=== PATIENT | male | born 1970 | race Caucasian/White ===

== ENCOUNTER 2018-05-16 11:30 | Inpatient (IN) | payer BC ==
[2018-05-16] MEDS ORDERED: Nicotine Inhaler* 10 MG AMP INH PRN (11:48)
--- NOTE | 2018-05-16 11:51 | ED ---
Psychiatric Complaint - HPI Summary HPI Summary: Patient is a 47-year-old male with history of bipolar disorder taking sertraline as needed for depression and anxiety. He states he took one yesterday, but this does not improve the symptoms. For the past several days he has been having racing thoughts. Denies any suicidal or homicidal ideation. Denies any self-harm. He states he is under a lot of stress at work with attempting enclosing a deal with the [employer]. He is endorsing insomnia. He denies any health problems to his knowledge, including cardiac disease. is at bedside. He currently does not have a therapist. - History Of Current Complaint Chief Complaint: EDMentalHealth Time Seen by Provider: 05/16/18 11:44 Hx Obtained From: Patient, Family/Optical Effects Line Up Person Onset/Duration: Sudden Onset Timing: Constant Severity Initially: Moderate Severity Currently: Moderate Character: Manic Aggravating Factor(s): Recent Stress Alleviating Factor(s): Nothing Associated Signs And Symptoms: Positive: Negative - Risk Factor(s) Completed Suicide Risk Factors: Male, Age Greater Than 60, White [place] - Allergies/Home Medications Allergies/Adverse Reactions: Allergies Allergy/AdvReac Type Severity Reaction Status Date / Time No Known Allergies Allergy Verified 05/16/18 11:36 Home Medications: Home Medications NK [No Home Medications Reported] 05/16/18 [History Confirmed 05/16/18] PMH/Surg Hx/FS Hx/Imm Hx Previously Healthy: Yes - Immunization History Hx Pertussis Vaccination: No Immunizations Up to Date: Yes Infectious Disease History: No Infectious Disease History: Denies: Traveled Outside the [place] in Last 30 Days - Social History Occupation: Employed Full-time Lives: With Family Alcohol Use: None Hx Substance Use: No Substance Use Type: Reports: None Hx Tobacco Use: No Smoking Status (MU): Never Smoked Tobacco Review of Systems Negative: Fever, Chills, Fatigue, Skin Diaphoresis Negative: Palpitations, Chest Pain Negative: Shortness Of Breath, Cough Genitourinary: Negative Positive: no symptoms reported, see HPI Negative: Arthralgia, Myalgia Negative: Bruising Negative: Headache, Weakness Positive: Anxious, Depressed All Other Systems Reviewed And Are Negative: Yes Physical Exam Triage Information Reviewed: Yes Vital Signs On Initial Exam: Initial Vitals Temp Pulse Resp BP Pulse Ox 97.6 F 109 22 152/116 97 05/16/18 11:32 05/16/18 11:32 05/16/18 11:32 05/16/18 11:32 05/16/18 11:32 Vital Signs Reviewed: Yes Appearance: Positive: Well-Appearing Skin: Positive: Warm, Skin Color Reflects Adequate Perfusion Head/Face: Positive: Normal Head/Face Inspection Eyes: Positive: EOMI, RAJESH, Conjunctiva Clear Neck: Positive: Supple, No Lymphadenopathy Respiratory/Lung Sounds: Positive: Clear to Auscultation, Breath Sounds Present Cardiovascular: Positive: RRR, Pulses are Symmetrical in both Upper and Lower Extremities Musculoskeletal: Positive: Normal, Strength/ROM Intact Neurological: Positive: Speech Normal Psychiatric: Positive: Normal, Affect/Mood Appropriate Diagnostics - Vital Signs Vital Signs Temp Pulse Resp BP Pulse Ox 05/16/18 11:32 97.6 F 109 22 152/116 97 - Laboratory Result Diagrams: 05/16/18 12:03 05/16/18 12:03 Lab Statement: Any lab studies that have been ordered have been reviewed, and results considered in the medical decision making process. Course/Dx - Course Course Of Treatment: During the patient's course treatment, the patient's evaluated for bipolar disorder which has been worse over the past 2 days. He endorses racing thoughts. Denies any suicidal homicidal ideation. He states he would like to talk to somebody and receive resources. He remains on sertraline as needed, but states this has not been improving his symptoms. Awaiting MHU - patient is signed out to Farhad Cruz PA-C at 5:30pm. - Differential Dx/Clinical Impression Differential Diagnosis/HQI/PQRI: Positive: Other - racing thoughts Provider Diagnosis: Stress Discharge - Sign-Out/Discharge Documenting (check all that apply): Sign-Out Patient Signing out patient TO: Farhad Cruz Patient Received Moderate/Deep Sedation with Procedure: No - Discharge Plan Condition: Good Referrals: Roque Fernandez MD [Primary Care Provider] - - Billing Disposition and Condition Condition: GOOD
[2018-05-16 12:11] LABS: ABS Basophils 0 10^3/ul (0-0.2); ABS Eosinophils 0 10^3/ul (0-0.6); ABS Lymphocytes 1.2 10^3/ul (1.0-4.8); ABS Monocytes 0.5 10^3/ul (0-0.8); ABS Neutrophils 5.3 10^3/ul (1.5-7.7); ABS Nucleated RBC 0 10^3/ul; Eosinophil % 0.2 %; Hematocrit 41 % (36-46); Lymphocyte % 16.8 %; Mean Corpuscular HGB Conc 34 g/dL (31-36); Mean Corpuscular Hemoglobin 29 pg (27-31); Mean Corpuscular Volume 86 fL (80-94); Mean Platelet Volume 7.3 fL (7.4-10.4); Nucleated Red Blood Cells % 0; Platelet Count 231 10^3/uL (150-450); Red Blood Count 4.77 10^6 /uL (4.18-5.48); Red Cell Distribution Width 14 % (10.5-15)
[2018-05-16 12:28] LABS: ALT 22 U/L (7-52); AST 26 U/L (13-39); Albumin 4.4 g/dL (3.2-5.2); Albumin/Globulin Ratio 1.5 (1-3); Alkaline Phosphatase 69 U/L (34-104); Anion Gap 8 mmol/L (2-11); BUN/Creatinine Ratio 11.5 (8-20); Blood Urea Nitrogen 10 mg/dL (6-24); CO2 Carbon Dioxide 23 mmol/L (22-32); Calcium 8.8 mg/dL (8.6-10.3); Chloride 103 mmol/L (101-111); EGFR African American 112.9 (>60); EGFR Non-African American 93.3 (>60); Glucose 136 mg/dL (70-100); Potassium 3.8 mmol/L (3.5-5.0); Sodium 134 mmol/L (135-145); Total Protein 7.4 g/dL (6.4-8.9)
[2018-05-16 12:29] LABS: Urine Appearance Clear; Urine Bilirubin Negative (Negative); Urine Blood Negative (Negative); Urine Color Straw; Urine Glucose Negative (Negative); Urine Ketones Negative (Negative); Urine Nitrite Negative (Negative); Urine Protein Negative (Negative); Urine Specific Gravity 1.009 (1.010-1.030); Urine Urobilinogen Negative (Negative)
[2018-05-16 12:55] LABS: Barbiturates Urine Screen None Detected (None Detect); Benzodiazepine Urine Screen None Detected (None Detect); Urine Cannabinoids Screen None Detected (None Detect)
[2018-05-16 13:38] LABS: Acetaminophen < 15 mcg/mL; Alcohol < 10 mg/dL (<10); Salicylate < 2.50 mg/dL (<30)
[2018-05-16 13:53] LABS: TSH (Thyroid Stimulating Horm) 0.85 mcIU/mL (0.34-5.60)
--- NOTE | 2018-05-16 20:01 | PN ---
Progress Note - Progress Note Date of Service: 05/16/18 Note: Patient signed out to me by Codie WASHBURN pending mental health evaluation and disposition. Per Dr. Jon, patient was admitted in good condition to [facility] [place] for [place].
[2018-05-16] MEDS ORDERED: Acetaminophen TAB* 325 MG PO PRN (22:27)
[2018-05-16] MEDS ORDERED: Nicotine GUM* 2 MG PO PRN (22:28)
[2018-05-16] MEDS ORDERED: Al Hydrox/Mg Hydrox/Simet LIQ* 30 ML UDC PO PRN (22:28)
[2018-05-16] MEDS ORDERED: LORazepam TAB(*) 1 MG PO PRN (22:29)
[2018-05-16] MEDS ORDERED: Mouth Piece, Nicotine* 1 EACH CARTRIDGE INH PRN (22:29)
[2018-05-17] MEDS ORDERED: OLANzapine TAB*ODT* 10 MG TAB ONE (09:28)
[2018-05-17] MEDS ORDERED: OLANzapine TAB*ODT* 10 MG TAB PO ONE (09:55)
[2018-05-17] MEDS: Multivitamins/Minerals TAB PO SCH (09:57)
[2018-05-17] MEDS ORDERED: Olanzapine INJ(NF) 10 MG VIAL IM ONE (10:00)
[2018-05-17] MEDS ORDERED: diPHENhydraMINE PO* 50 MG ONE (10:18)
[2018-05-17] MEDS ORDERED: Haloperidol TAB* 5 MG ONE (10:18)
[2018-05-17] MEDS ORDERED: LORazepam TAB(*) 1 MG ONE (10:18)
[2018-05-17] MEDS ORDERED: diPHENhydraMINE IV* 50 MG/ML 1 ml VIAL (BENADRYL) ONE (10:25)
[2018-05-17] MEDS ORDERED: Haloperidol INJ IV/IM* 5 MG/ML AMP ONE (10:25)
[2018-05-17] MEDS ORDERED: LORazepam INJ* 2 MG/ML 1 ML VIAL ONE (10:27)
[2018-05-17] MEDS ORDERED: LORazepam INJ* 2 MG/ML 1 ML VIAL IM ONE (10:35)
[2018-05-17] MEDS ORDERED: LORazepam TAB(*) 1 MG PO ONE (10:35)
[2018-05-17] MEDS ORDERED: diPHENhydraMINE PO* 50 MG PO ONE (10:35)
[2018-05-17] MEDS ORDERED: Haloperidol TAB* 5 MG PO ONE (10:35)
[2018-05-17] MEDS ORDERED: diPHENhydraMINE IV* 50 MG/ML 1 ml VIAL (BENADRYL) IM ONE (10:35)
[2018-05-17] MEDS ORDERED: Haloperidol INJ IV/IM* 5 MG/ML AMP IM ONE (10:35)
--- NOTE | 2018-05-17 20:53 | HP ---
H&P (Free Text) History and Physical: Justification for admission - Mr Simmons has been manic and psychotic, with thoughts that he and his in a motor vehicle accident, for example. He stated to ED staff that he was suicidal. He requires hospital level of care for safety, assessment and treatment. ID Mr Simomns is 47 year-old man. 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 CC Requires care for psychotic loyda HPI Mr Simmons is difficult to interview at this time, given his psychosis and seeking immediate discharge. He has reported poor sleep and stress at work. He has reported multiple morbid and odd false beliefs, including that his parents are , that he slashed his wrists, and that he and his in a car accident. He has had several episodes of psychotic level loyda at about 7 year intervals per his Angela. She reports that past episodes have quickly resolved after he received medications and slept well for a few days. On the unit today, his behavior escalated to the point of threatening to kill a nurse, which required security be called and Haldol 5 mg, Ativan 2 mg, Benadryl 50 mg IM medication given. Substance abuse denied any history of substance abuse at this last admission here in 2010 and in ED evaluation. Denied ever smoking tobacco. Past Psychiatric History Previously admitted to this unit in 2006 and 2010. Has lapsed from care against loyda, which had included taking Seroquel in the past. Suicidal history none reported Violence history Angela denies any history of violence. Legal history none reported Family History reported on 2011 admission anxiety issues in mother and grandmother, with some related issues in his brother. Medical History denied any health problems in ED eval REVIEW OF SYSTEMS and PHYSICAL EXAMINATION in ED negative/normal except for psychiatric issues. Vital Signs - On Arrival Temp Pulse Resp BP Pulse Ox 97.6 F 109 22 152/116 97 05/16/18 11:32 05/16/18 11:32 05/16/18 11:32 05/16/18 11:32 05/16/18 11:32 Vital Signs - Most Recent Temp Pulse Resp BP Pulse Ox 98.1 F 104 16 115/91 98 05/16/18 22:18 05/16/18 22:18 05/17/18 12:42 05/16/18 22:18 05/16/18 22:18 Labs Laboratory Tests 05/16/18 05/16/18 05/16/18 11:47 11:47 12:03 WBC 7.0 RBC 4.77 Hgb 14.0 Hct 41 MCV 86 MCH 29 MCHC 34 RDW 14 Plt Count 231 MPV 7.3 L Neut % (Auto) 75.4 Lymph % (Auto) 16.8 Rolette % (Auto) 7.0 Eos % (Auto) 0.2 Baso % (Auto) 0.6 Absolute Neuts (auto) 5.3 Absolute Lymphs (auto) 1.2 Absolute Monos (auto) 0.5 Absolute Eos (auto) 0 Absolute Basos (auto) 0 Absolute Nucleated RBC 0 Nucleated RBC % 0 Sodium Potassium Chloride Carbon Dioxide Anion Gap BUN Creatinine Est GFR ( Amer) Est GFR (Non-Af Amer) BUN/Creatinine Ratio Glucose Calcium Total Bilirubin AST ALT Alkaline Phosphatase Total Protein Albumin Globulin Albumin/Globulin Ratio TSH Urine Color Straw Urine Appearance Clear Urine pH 6.0 Ur Specific [place] 1.009 L Urine Protein Negative Urine Ketones Negative Urine Blood Negative Urine Nitrate Negative Urine Bilirubin Negative Urine Urobilinogen Negative Ur Leukocyte Esterase Negative Urine Glucose Negative Salicylates Urine Opiates Screen None detected Acetaminophen Ur Barbiturates Screen None detected Ur Phencyclidine Scrn None detected Ur Amphetamines Screen None detected U Benzodiazepines Scrn None detected Urine Cocaine Screen None detected U Cannabinoids Screen None detected Serum Alcohol 05/16/18 12:03 WBC RBC Hgb Hct MCV MCH MCHC RDW Plt Count MPV Neut % (Auto) Lymph % (Auto) Rolette % (Auto) Eos % (Auto) Baso % (Auto) Absolute Neuts (auto) Absolute Lymphs (auto) Absolute Monos (auto) Absolute Eos (auto) Absolute Basos (auto) Absolute Nucleated RBC Nucleated RBC % Sodium 134 L Potassium 3.8 Chloride 103 Carbon Dioxide 23 Anion Gap 8 BUN 10 Creatinine 0.87 Est GFR ( Amer) 112.9 Est GFR (Non-Af Amer) 93.3 BUN/Creatinine Ratio 11.5 Glucose 136 H Calcium 8.8 Total Bilirubin 0.80 AST 26 ALT 22 Alkaline Phosphatase 69 Total Protein 7.4 Albumin 4.4 Globulin 3.0 Albumin/Globulin Ratio 1.5 TSH 0.85 Urine Color Urine Appearance Urine pH Ur Specific [place] Urine Protein Urine Ketones Urine Blood Urine Nitrate Urine Bilirubin Urine Urobilinogen Ur Leukocyte Esterase Urine Glucose Salicylates < 2.50 Urine Opiates Screen Acetaminophen < 15 Ur Barbiturates Screen Ur Phencyclidine Scrn Ur Amphetamines Screen U Benzodiazepines Scrn Urine Cocaine Screen U Cannabinoids Screen Serum Alcohol < 10 Current meds Current Medications Acetaminophen (Tylenol Tab*) 650 mg PO Q4H PRN PRN Reason: PAIN; OR TEMP>101 Al Hydrox/Mg Hydrox/Simethicone (Maalox Plus*) 30 ml PO Q4H PRN PRN Reason: INDIGESTION Device (Nicotine Mouth Piece*) 1 each INH .USE W/ CARTRIDGE PRN PRN Reason: WITHDRAWAL - NICOTINE Lorazepam (Ativan Tab(*)) 1 mg PO BID PRN PRN Reason: ANXIETY Multivitamins/Minerals (Theragran/Minerals Tab*) 1 tab PO DAILY ROM Last Admin: 05/17/18 09:57 Dose: Not Given Nicotine (Nicotine Inhaler*) 10 mg INH Q2H PRN PRN Reason: CRAVING Nicotine Polacrilex (Nicotine Gum*) 2 mg PO Q2H PRN PRN Reason: CRAVING MSE Mr Simmons has been psychotic and agitated, and appeared to be making anglican gestures around the time of threatening to kill a nurse on the unit. His thought process is disorganized with delusional thought content. His insight, judgment and impulse control are all poor. Assessment Mr Simmons has reportedly had 4 or 5 episodes of psychotic loyda similar to his current presentation. He has been on Seroquel in the past. He reportedly has always cleared quickly once treatment leads to a few good days of sleep. Diagnoses Bipolar I, MRE manic with psychosis Plan Mr Simmons has been admitted to this [facility] for safety, assessment and treatment. Monitor with q15 minute checks. Coordinate care with help in gathering information from his Angela. Arrange for outpatient follow up care once stabilized and ready for discharge home. Restart on Seroquel, with Zyprexa and Ativan prn agitation. To consider lithium or Depakote once able to discuss risk/benefit with patient.
[2018-05-17] MEDS ORDERED: OLANzapine TAB*ODT* 5 MG PO PRN (20:54)
[2018-05-17] MEDS ORDERED: QUEtiapine TAB* 100 MG PO SCH (21:00)
[2018-05-18 07:57] VITALS: BP 121/88
[2018-05-18] MEDS: Multivitamins/Minerals TAB PO SCH (09:44)
--- NOTE | 2018-05-18 13:16 | PN ---
BSU: Group Therapy Note - Service Type Service Type: [id number] Group Psychotherapy - Cognitive Behavioral Group Therapy ( CBT):Patient was attentive and participatory in CBT programming this morning, and remained in good behavioral control. Patient expressed positive insights regarding relevant treatment interventions and goals.
== END 2018-05-18 12:30 | disposition home or self-care (01) | DRG 753 ==
LOC: ED 11:30 → BSU 21:10 → ED 22:18
PROVIDERS: ADMIT Psychiatry & Neurology Psychiatry; ATTEND Psychiatry & Neurology Psychiatry
DX: F31.2 Bipolar disorder, current episode manic severe with psychotic features (principal); Z81.8 Family history of other mental and behavioral disorders
CPT/HCPCS: 36415; 80053; 80307; 80320; 80329; 81003; 84443; 85025; 90853; 99222; 99238; 99285; A9270-GY; G0480; J1200; J1630; J2060

== ENCOUNTER 2018-06-03 21:48 | Emergency (ER) | payer BC ==
[2018-06-03 22:00] VITALS: BP 134/91
--- NOTE | 2018-06-04 00:20 | UC ---
General HPI - HPI Summary HPI Summary: PT ARRIVES WITH REQUESTING GLUCOSE CHECK AND HEART EVAL. HE HAS NO H/O DM OR CAD BUT IS CONCERNED DUE TO FAM HX. PT IS BIPOLAR, NOT ON MEDS AND ADMITS HIS THOUGHTS ARE RACING. RECENT ADMISSION FOR PSYCHOSIS AND SI 05/16/18-05/18/18. DID NOT F/U WITH MENTAL HEALTH. DENIES CP, SOB, NAUSEA, DIZZINESS, SWEATS. - History of Current Complaint Chief Complaint: UCGeneralIllness Stated Complaint: POSSIBLE HIGH BLOOD SUGAR Time Seen by Provider: 06/03/18 22:02 Hx Obtained From: Patient Pain Intensity: 0 - Allergy/Home Medications Allergies/Adverse Reactions: Allergies Allergy/AdvReac Type Severity Reaction Status Date / Time No Known Allergies Allergy Verified 06/03/18 22:00 PMH/Surg Hx/FS Hx/Imm Hx Psychological History: Bipolar Disorder - Surgical History Surgical History: Yes Surgery Procedure, Year, and Place: hernia repair, Cholecystectomy, labrum repair - Family History Known Family History: Positive: Cardiac Disease, Diabetes - Social History Alcohol Use: Weekly Alcohol Amount: 2X Substance Use Type: None Smoking Status (MU): Never Smoked Tobacco - Immunization History Most Recent Influenza Vaccination: January 2018 Most Recent Pneumonia Vaccination: n/a Review of Systems All Other Systems Reviewed And Are Negative: Yes Constitutional: Positive: Negative Respiratory: Positive: Negative Cardiovascular: Positive: Negative Gastrointestinal: Positive: Negative Psychological: Positive: Anxious Physical Exam Triage Information Reviewed: Yes Appearance: Well-Appearing - PT WELL GROOMED, GOOD EYE CONTACT, APPROPRIATELY INTERACTIVE, No Pain Distress, Well-Nourished Vital Signs: Initial Vital Signs Temp 98.7 F 06/03/18 21:53 Pulse 105 06/03/18 21:53 Resp 16 06/03/18 21:53 BP 134/91 06/03/18 21:53 Pulse Ox 95 06/03/18 21:53 Vital Signs Reviewed: Yes Eyes: Positive: Conjunctiva Clear ENT: Positive: Hearing grossly normal, Pharynx normal, TMs normal Neck: Positive: Supple, Nontender, No Lymphadenopathy Respiratory Exam: Normal Cardiovascular Exam: Normal Abdomen Description: Positive: Soft Musculoskeletal: Positive: No Edema Neurological: Positive: Alert Psychological: Positive: Normal Response To Family, Age Appropriate Behavior, Other: - PT CALM, LUCID, CONVEYS GOOD INSIGHT INTO CONDITION. Skin: Negative: Rashes Diagnostics - EKG Cardiac Rate: Tachycardia - 102BPM Cardiac Rhythm: Sinus: Normal - LAFB Ectopy: None Course/Dx - Course Course Of Treatment: PT PRESENTED WITH CONCERNS ABOUT ELEVATED BLOOD SUGAR AND HEART FUNCTION. HAS NO H/O DM OR CAD BUT HAS POSITIVE FAMILY HISTORY. ADMITS TO BIPOLAR D/O AND STATES HIS STRESS LEVEL HAS BEEN ELEVATED DUE TO WORK, FAMILY AND LIFE IN GENERAL. ADMITS HIS THOUGHT HAVE BEEN RACING BUT DENIES SI/HI. POC GLUCOSE AND EKG UNREMARKABLE. PT STATES HE FEELS BETTER KNOWING THAT AND WISHES TO GO HOME. STATES HE WILL F/U WITH [facility] AND PCP TOMORROW. PT ONLY TAKES ATIVAN FOR SX MGMT AND HAS NOT BEEN TAKING IT UNTIL TODAY JUST [employer] SANDER AND FINISHER. BASED ON PT PRESENTATION AND INTERVIEW DURING ENCOUNTER NO INDICATION FOR ER TRANSFER OR 941. MYSELF AND RN SEDRICK CASILLAS ACCOMPANIED PT'S WHILE SHE ADVISED HIM SHE WAS CALLING 911 FROM HERE. PT STOOD UP AND WALKED OUT OF THE BUILDING. OF NOTE PT HAD RECENT ADMISSION AT [facility] [place] FOR PSYCHOSIS AND SI 05/16/18-05/18/18. DID NOT F/U WITH MENTAL HEALTH ADVISED. IS NOT ON ANY PSYCH MEDS OTHER THAN ATIVAN FOR SLEEP WHICH HE HAS NOT TAKEN UNTIL TODAY. CONVEYS CONCERN FOR HER SAFETY WELL THE SAFETY OF HER KIDS AT HOME ( AGES 19, 17, 15 YEARS). THERE ARE GUNS IN THE HOUSE. SHE CALLED HOME AND HAD HER KIDS REMOVE THE FIREARMS. I CALLED AND SPOKE TO DR. ARREAGA IN THE ED, DR. 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 GIVEN PT PRESENTATION CAN NOT MAKE ARGUMENT FOR 941. ADVISED THAT SHE WOULD NEED TO CALL 911 FROM HERE, WHICH SHE DID STATED ABOVE. POLICE ARRIVED AND WILL LOOK FOR PT. ADVISED THAT ONLY RECOURSE FOR IS TO VACATE THE HOME WITH HER CHILDREN. SHE WILL DRIVE HOME AND A DEPUTY FROM THE [facility]S DEPT WILL MEET HER AT HER HOME UNTIL SHE PACKS UP AND VACATES. PRIOR TO LEAVING THE OFFICER ADVISED US THAT PT HAD ARRIVED HOME AND THAT CANCELLED DEPUTY DETAIL AT THE HOME. OFFICER STATES HE ENCOURAGED HER TO ACCEPT DEPUTY DETAIL BUT SHE CONTINUED TO DECLINE. - Diagnoses Provider Diagnosis: Bipolar affective disorder Discharge - Sign-Out/Discharge Documenting (check all that apply): Patient Departure All imaging exams completed and their final reports reviewed: No Studies - Discharge Plan Condition: Guarded Disposition: ELOPEMENT Referrals: Roque Fernandez MD [Primary Care Provider] - - Billing Disposition and Condition Condition: GUARDED Disposition: Elopement
== END 2018-06-03 23:30 | disposition left against medical advice (07) ==
LOC: UCEAST 21:48
DX: F31.9 Bipolar disorder, unspecified (principal)
CPT/HCPCS: 99212; G0463